=== PATIENT | male | born 1985 | race Asian ===

== ENCOUNTER → 2021-02-19 12:33 | Outpatient (CLI) | payer OTHER, SELFPAY ==
[2021-02-19 13:41] LABS: Hemoglobin A1C% w Est Avg Glu 8.4 % (4.0-6.0)
[2021-02-19 13:42] LABS: Add Manual Diff / Slide Review NO; Basophils Absolute Auto 100 /uL (0-100); Basophils Percent Auto 0.9 % (0-2); Eosinophils Absolute Auto 600 /uL (0-450); Hematocrit 51.1 % (41-53); Hemoglobin 16.9 g/dL (13.5-17.5); Lymphocytes Absolute Auto 2700 /uL (1100-4500); Mean Corpuscular HGB Conc 33.1 % (30-36); Mean Corpuscular Hemoglobin 28.4 PG (26-34); Mean Corpuscular Volume 85.8 fL (80-100); Monocytes Absolute Auto 900 /uL (0-900); Monocytes Percent Auto 8.4 % (3-14); Neutrophils Absolute Auto 6800 /uL (1500-7000); Neutrophils Percent Auto 61.7 % (50-75); Platelet Count 307 X10^3/uL (150-400); Red Blood Cell Count 5.95 X10^6/uL (4.5-5.9)
[2021-02-19 14:06] LABS: Alanine Aminotransferase 41 IU/L (<50); Albumin 4.4 g/dL (3.5-5.0); Albumin Globulin Ratio 1.4 (1.0-2.8); Alkaline Phosphatase 91 U/L (38-126); Aspartate Aminotransferase 28 IU/L (17-59); BUN Creatinine Ratio 19.6 (6-22); Bilirubin Total 0.4 mg/dL (0.2-1.3); Blood Urea Nitrogen 18 mg/dL (9-20); Calcium 9.3 mg/dL (8.4-10.2); Carbon Dioxide 26 mmol/L (22-32); Chloride 104 mmol/L (98-107); Cholesterol 240 mg/dL (140-199); Estimated Glomerular Filt Rate > 60.0 mL/min (>60); Globulin 3.1 g/dL (1.7-4.1); Glucose 165 mg/dL (70-100); HDL Cholesterol 56 mg/dL (40-60); HEMOLYSIS < 15 (0-50); LDL Cholesterol Calculated 168 mg/dL (<100); Potassium 4.2 mmol/L (3.4-5.1); Sodium 140 mmol/L (137-145); Total Protein 7.5 g/dL (6.3-8.2); Triglycerides 78 mg/dL (35-150)
[2021-02-19 14:30] LABS: TSH w/ Reflex to FT4 1.25 uIU/mL (0.47-4.68)
== END ==
PROVIDERS: PCP Family Medicine; Referring Provider Family Medicine; Visit Provider Family Medicine
DX: I10 Essential (primary) hypertension (principal); I15.9 Secondary hypertension, unspecified; M10.9 Gout, unspecified; Z83.3 Family history of diabetes mellitus
CPT/HCPCS: 36415; 80053; 80061; 83036; 84443; 84550; 85025

== ENCOUNTER → 2021-02-25 13:35 | Outpatient (CLI) | payer OTHER, SELFPAY ==
[2021-02-25] MEDS: COVID-19 VACC #1, MRNA(MOD) 100 MCG/0.5 ML VIAL IM (13:41)
== END ==
PROVIDERS: PCP Family Medicine; Visit Provider Internal Medicine
DX: Z23 Encounter for immunization (principal)
CPT/HCPCS: 0011A; 91301

== ENCOUNTER → 2021-03-26 14:33 | Outpatient (CLI) | payer OTHER, SELFPAY ==
[2021-03-26] MEDS: COVID-19 VACC #2, MRNA(MOD) 100 MCG/0.5 ML VIAL IM (14:41)
== END ==
PROVIDERS: PCP Family Medicine; Visit Provider Internal Medicine
DX: Z23 Encounter for immunization (principal)
CPT/HCPCS: 0012A; 91301

== ENCOUNTER 2022-08-18 18:22 | Emergency (ER) | payer OTHER, SELFPAY ==
[2022-08-18] VITALS (19 sets, daily range): BP systolic 166–231; BP diastolic 89–130; PULSE 72–106; RESP 14–33; TEMP 36.7; O2SAT 93–98; BMI 39.1
--- NOTE | 2022-08-18 18:47 | DI.RAD.S_ITS ---
PROCEDURE: XR CHEST 1V INDICATIONS: chest pain TECHNIQUE: One view of the chest was acquired. COMPARISON: None. FINDINGS: Surgical changes and devices: None. Lungs and pleura: Lungs are clear. No pleural effusions or pneumothorax. Mediastinum: Mediastinal contours appear normal. Heart size is normal. Bones and chest wall: No suspicious bony lesions. Overlying soft tissues appear unremarkable. IMPRESSION: 1. No acute cardiopulmonary disease. Dictated by: Harpal Gomez M.D. on 08/18/2022 at 20:03 Approved by: Harpal Gomez M.D. on 08/18/2022 at 20:04
[2022-08-18 19:19] LABS: Add Manual Diff / Slide Review NO; Basophils Absolute Auto 100 /uL (0-100); Basophils Percent Auto 0.8 % (0-2); Eosinophils Absolute Auto 600 /uL (0-450); Eosinophils Percent Auto 4.3 % (2-4); Hematocrit 48.3 % (41-53); Hemoglobin 16.1 g/dL (13.5-17.5); Lymphocytes Absolute Auto 3000 /uL (1100-4500); Lymphocytes Percent Auto 22.1 % (25-40); Mean Corpuscular HGB Conc 33.4 % (30-36); Mean Corpuscular Hemoglobin 28.7 PG (26-34); Mean Corpuscular Volume 85.8 fL (80-100); Monocytes Absolute Auto 1100 /uL (0-900); Monocytes Percent Auto 7.8 % (3-14); Neutrophils Absolute Auto 8900 /uL (1500-7000); Platelet Count 314 X10^3/uL (150-400); Red Blood Cell Count 5.63 X10^6/uL (4.5-5.9); Red Cell Distribution Width 13.2 % (11.6-14.8); White Blood Cell Count 13.7 X10^3/uL (4.5-11.0)
[2022-08-18 19:20] LABS: Alanine Aminotransferase 32 IU/L (<50); Albumin 3.9 g/dL (3.5-5.0); Alkaline Phosphatase 83 U/L (38-126); Aspartate Aminotransferase 29 IU/L (17-59); BUN Creatinine Ratio 14.9 (6-22); Bilirubin Total 0.4 mg/dL (0.2-1.3); Blood Urea Nitrogen 18 mg/dL (9-20); Calcium 8.9 mg/dL (8.4-10.2); Carbon Dioxide 25 mmol/L (22-32); Chloride 100 mmol/L (98-107); Creatine Kinase 104 U/L (55-170); Estimated Glomerular Filt Rate > 60 mL/min (>60); Globulin 3.8 g/dL (1.7-4.1); Glucose 286 mg/dL (70-100); HEMOLYSIS 19 (0-50); Lipase 467 U/L (23-300); Magnesium 1.6 mg/dL (1.6-2.3); Potassium 3.9 mmol/L (3.4-5.1); Sodium 139 mmol/L (137-145); Total Protein 7.7 g/dL (6.3-8.2)
[2022-08-18 19:31] LABS: Troponin I 0.028 ng/mL (0.01-0.034)
[2022-08-18 19:35] LABS: CKMB % Relative Index 1.3 % (1.5-5.0)
--- NOTE | 2022-08-18 21:38 | ED_ITS ---
HPI - General Adult General Chief complaint: Hypertension Stated complaint: BP HIGH SENT BY [facility] Time Seen by Provider: 08/18/22 21:23 Source: patient Mode of arrival: Ambulatory History of Present Illness HPI narrative: The patient is a 36-year-old male history of hypertension noncompliant and gout. Presents today with a gout attack on going for the last 2 days. He says he is out of his colchicine medication he went to a walk-in clinic for colchicine however it was noted that his blood pressure was 250/150 he was sent to the ED for further evaluation. He states he denies any chest pain or shortness of breath. He is in large amount of pain now. He has no fever or chills. He has a mild headache. Blood pressure initially was also noted to be quite elevated 231/130 but has come down slow weight. He states that he is supposed to take blood pressure medication but he has not had a refill for the last 6 months. Related Data Previous Rx's Medication Instructions Recorded allopurinol 100 mg tablet 100 mg PO DAILY #90 tabs 02/19/21 amlodipine 2.5 mg tablet 2.5 mg PO BEDTIME #30 tabs 02/19/21 colchicine 0.6 mg capsule 0.6 mg PO .Q hour #30 caps 02/19/21 indomethacin 50 mg capsule 50 mg PO TID PRN Gout attack #30 02/19/21 caps lisinopril 10 mg tablet 10 mg PO DAILY #30 tabs 02/19/21 amlodipine 5 mg tablet 5 mg PO DAILY #30 tabs 08/19/22 amlodipine 5 mg tablet 5 mg PO DAILY #30 tabs 08/19/22 hydrocodone 5 mg-acetaminophen 325 1 tab PO Q6H PRN pain #10 tabs 08/19/22 mg tablet hydrocodone 5 mg-acetaminophen 325 1 tab PO Q6H PRN pain #10 tabs 08/19/22 mg tablet lisinopril 10 mg tablet 10 mg PO DAILY #30 tabs 08/19/22 lisinopril 10 mg tablet 10 mg PO DAILY #30 tabs 08/19/22 Allergies Allergy/AdvReac Type Severity Reaction Status Date / Time No Known Drug Allergies Allergy Verified 08/18/22 18:45 Review of Systems Review of Systems Narrative: GENERAL: Denies chills, fatigue, malaise, fever, sweats, travel HEENT: Denies sinus pain, ear pain, sore throat, difficulty swallowing, neck pain RESPIRATORY: Denies dyspnea, cough, wheezing, hemoptysis, sputum. CARDIOVASCULAR: Denies chest pain, palpitations, orthopnea, edema GASTROINTESTINAL: Denies nausea, vomiting, abdominal pain, diarrhea, constipation, melena. : Denies dysuria, frequency, incontinence, hematuria, urinary retention, flank pain. MUSCULOSKELETAL: See HPI SKIN: No rash, no erythema, no pruritus NEUROLOGIC: Denies weakness, dizziness, headache, numbness, change in speech, confusion PSYCHIATRIC: No concerning psychosocial issues. 12 point review of systems is negative except for those stated above and HPI Patient History Medical History Family history of diabetes mellitus Gout High blood pressure Secondary hypertension Social History Smoking Status: Current every day smoker Smoking Status: Current every day smoker alcohol intake frequency: 0-2 drinks per day Substance Use Type: does not use Exam Initial Vital Signs Initial Vital Signs: Vital Signs Temperature 98.0 F 08/18/22 18:40 Pulse Rate 106 H 08/18/22 18:40 Respiratory Rate 18 08/18/22 18:40 Blood Pressure 231/130 H 08/18/22 18:40 Pulse Oximetry 96 08/18/22 18:40 Oxygen Delivery Method 08/18/22 18:40 GENERAL: Alert 36-year-old no acute distress HEENT: Head atraumatic,EOMI, pupils reactive, face symmetric, [moist] mucous membranes CARDIOVASCULAR: Regular rate and rhythm without murmurs, rubs or gallops. RESPIRATORY: Breath sounds equal bilaterally, no wheezes rales or rhonchi. ABDOMEN: Soft, nontender. Normoactive bowel sounds all 4 quadrants. No guarding or rebound. EXTREMITIES: Normal range of motion, no clubbing or edema. Neurovascularly intact Tender left great metatarsal joint no significant erythema or swelling distal pedal pulse intact NEUROLOGICAL: Alert and oriented x4.Normal gait and speech SKIN: Warm, dry, no laceration, no petechiae, no rashes or lesions. Course Orders Ordered: ED Orders 08/18/22 18:47 XR chest 1V Stat EKG-12 Lead Stat 08/18/22 18:49 Complete Blood Count AUTO DIFF Stat Comprehensive Metabolic Panel Stat Lipase Stat Magnesium Stat Troponin & CK Cardiac Panel Stat 08/18/22 22:04 Trop I [Troponin I] Stat 08/19/22 00:00 Trop I [Troponin I] Stat Discontinued Medications Hydrocodone Bitart/Acetaminophen (Hydrocodone/Acet 5/325 Prepack) 1 bottle MISC SEEINSTR ONE Stop: 08/18/22 21:44 Last Admin: 08/18/22 21:49 Dose: 1 bottle Documented By: MEREDITH Hydrocodone Bitart/Acetaminophen (Hydrocodone/Acet 5/325 Tablet) 2 tab PO NOW ONE Stop: 08/18/22 21:55 Last Admin: 08/18/22 21:59 Dose: 2 tab Documented By: MEREDITH Colchicine (Colchicine 0.6 Mg Tablet) 0.6 mg PO NOW ONE Stop: 08/18/22 21:44 Last Admin: 08/18/22 22:00 Dose: 0.6 mg Documented By: MEREDITH Lisinopril (Lisinopril 10 Mg Tablet) 10 mg PO NOW ONE Stop: 08/18/22 21:45 Last Admin: 08/18/22 22:00 Dose: 10 mg Documented By: MEREDITH Vital Signs Vital signs: Vital Signs - 8 hr 08/18/22 18:40 08/18/22 19:56 08/18/22 19:51 Temperature 98.0 F Pulse Rate 106 H 95 H Respiratory Rate 18 18 Blood Pressure 231/130 H Pulse Oximetry 96 98 Oxygen Delivery Method Room Air Room Air 08/18/22 19:53 08/18/22 19:53 08/18/22 20:00 Temperature Pulse Rate 93 H 92 H Respiratory Rate 27 H 30 H Blood Pressure 166/92 H Pulse Oximetry 97 97 Oxygen Delivery Method 08/18/22 20:30 08/18/22 20:42 08/18/22 20:42 Temperature Pulse Rate 95 H 90 Respiratory Rate 26 H 22 Blood Pressure 204/100 H Pulse Oximetry 97 98 Oxygen Delivery Method 08/18/22 21:00 08/18/22 21:02 08/18/22 21:02 Temperature Pulse Rate 90 85 Respiratory Rate 21 24 Blood Pressure 185/93 H Pulse Oximetry 95 97 Oxygen Delivery Method 08/18/22 21:30 08/18/22 21:31 08/18/22 21:31 Temperature Pulse Rate 89 84 Respiratory Rate 20 21 Blood Pressure 187/93 H Pulse Oximetry 96 96 Oxygen Delivery Method 08/18/22 22:00 08/18/22 22:01 08/18/22 22:01 Temperature Pulse Rate 87 87 Respiratory Rate 22 33 H Blood Pressure 192/89 H Pulse Oximetry 97 96 Oxygen Delivery Method 08/18/22 22:30 08/18/22 22:36 08/18/22 22:36 Temperature Pulse Rate 90 82 Respiratory Rate 22 17 Blood Pressure 182/115 H Pulse Oximetry 96 94 Oxygen Delivery Method 08/18/22 23:26 08/18/22 23:00 08/18/22 23:01 Temperature Pulse Rate 72 83 Respiratory Rate 14 21 Blood Pressure 180/92 H 202/103 H Pulse Oximetry 93 94 Oxygen Delivery Method Room Air 08/18/22 23:01 08/18/22 23:25 08/18/22 23:25 Temperature Pulse Rate 89 82 Respiratory Rate 22 20 Blood Pressure 180/92 H Pulse Oximetry 94 94 Oxygen Delivery Method 08/18/22 23:30 08/18/22 23:30 08/19/22 00:00 Temperature Pulse Rate 78 80 Respiratory Rate 22 23 Blood Pressure 171/99 H Pulse Oximetry 95 97 Oxygen Delivery Method 08/19/22 00:01 08/19/22 00:01 08/19/22 00:30 Temperature Pulse Rate 79 82 Respiratory Rate 14 21 Blood Pressure 174/95 H Pulse Oximetry 97 97 Oxygen Delivery Method 08/19/22 00:31 08/19/22 00:31 08/19/22 01:00 Temperature Pulse Rate 84 78 Respiratory Rate 17 16 Blood Pressure 173/102 H 174/98 H Pulse Oximetry 97 95 Oxygen Delivery Method Medical Decision Making Lab Data Result diagrams: 08/18/22 18:49 08/18/22 18:49 Labs: Lab Results 08/18/22 08/18/22 08/18/22 Range/Units 18:49 18:49 22:04 WBC 13.7 H (4.5-11.0) X10^3/uL RBC 5.63 (4.5-5.9) X10^6/uL Hgb 16.1 (13.5-17.5) g/dL Hct 48.3 (41-53) % MCV 85.8 (80-100) fL MCH 28.7 (26-34) PG MCHC 33.4 (30-36) % RDW 13.2 (11.6-14.8) % Plt Count 314 (150-400) X10^3/uL Neut % (Auto) 65.0 (50-75) % Lymph % (Auto) 22.1 L (25-40) % Tucker % (Auto) 7.8 (3-14) % Eos % (Auto) 4.3 H (2-4) % Baso % (Auto) 0.8 (0-2) % Neut # (Auto) 8900 H (5102-3620) /uL Lymph # (Auto) 3000 (5298-6727) /uL Tucker # (Auto) 1100 H (0-900) /uL Eos # (Auto) 600 H (0-450) /uL Baso # (Auto) 100 (0-100) /uL Sodium 139 (137-145) mmol/L Potassium 3.9 (3.4-5.1) mmol/L Chloride 100 (98-107) mmol/L Carbon Dioxide 25 (22-32) mmol/L BUN 18 (9-20) mg/dL Creatinine 1.21 (0.66-1.25) mg/dL Estimated GFR > 60 (>60) mL/min BUN/Creatinine Ratio 14.9 (6-22) Glucose 286 H (70-100) mg/dL Calcium 8.9 (8.4-10.2) mg/dL Magnesium 1.6 (1.6-2.3) mg/dL Total Bilirubin 0.4 (0.2-1.3) mg/dL AST 29 (17-59) IU/L ALT 32 (<50) IU/L Alkaline Phosphatase 83 (38-126) U/L Total Creatine Kinase 104 (55-170) U/L CK-MB (CK-2) 1.30 (<2.37) ng/mL CK-MB (CK-2) Rel Index 1.3 L (1.5-5.0) % Troponin I 0.028 0.043 H (0.01-0.034) ng/mL Total Protein 7.7 (6.3-8.2) g/dL Albumin 3.9 (3.5-5.0) g/dL Globulin 3.8 (1.7-4.1) g/dL Albumin/Globulin Ratio 1.0 (1.0-2.8) Lipase 467 H (23-300) U/L 08/18/22 Range/Units 23:56 WBC (4.5-11.0) X10^3/uL RBC (4.5-5.9) X10^6/uL Hgb (13.5-17.5) g/dL Hct (41-53) % MCV (80-100) fL MCH (26-34) PG MCHC (30-36) % RDW (11.6-14.8) % Plt Count (150-400) X10^3/uL Neut % (Auto) (50-75) % Lymph % (Auto) (25-40) % Tucker % (Auto) (3-14) % Eos % (Auto) (2-4) % Baso % (Auto) (0-2) % Neut # (Auto) (4480-1905) /uL Lymph # (Auto) (8789-3837) /uL Tucker # (Auto) (0-900) /uL Eos # (Auto) (0-450) /uL Baso # (Auto) (0-100) /uL Sodium (137-145) mmol/L Potassium (3.4-5.1) mmol/L Chloride (98-107) mmol/L Carbon Dioxide (22-32) mmol/L BUN (9-20) mg/dL Creatinine (0.66-1.25) mg/dL Estimated GFR (>60) mL/min BUN/Creatinine Ratio (6-22) Glucose (70-100) mg/dL Calcium (8.4-10.2) mg/dL Magnesium (1.6-2.3) mg/dL Total Bilirubin (0.2-1.3) mg/dL AST (17-59) IU/L ALT (<50) IU/L Alkaline Phosphatase (38-126) U/L Total Creatine Kinase (55-170) U/L CK-MB (CK-2) (<2.37) ng/mL CK-MB (CK-2) Rel Index (1.5-5.0) % Troponin I 0.045 H (0.01-0.034) ng/mL Total Protein (6.3-8.2) g/dL Albumin (3.5-5.0) g/dL Globulin (1.7-4.1) g/dL Albumin/Globulin Ratio (1.0-2.8) Lipase (23-300) U/L Point of Care Testing Glucose POC 289 Point of care testing: Point of Care Testing Glucose POC 289 Imaging Data Chest x-ray: Radiologist's Impression: Signed Patient: Selwyn Ochoa MR#: [id number] : 1985 Acct:[id number] Age/Sex: 36 / M Date of Service: 08/18/22 Loc: ED Accession Number: [id number] ?? Procedure: XR chest 1V Ordering Provider: Sera Cade D.O. PROCEDURE:? XR CHEST 1V ? INDICATIONS:? chest pain ? TECHNIQUE:? One view of the chest was acquired.? ? COMPARISON:? None. ? FINDINGS:? ? Surgical changes and devices:? None.? ? Lungs and pleura:? Lungs are clear.? No pleural effusions or pneumothorax.? ? Mediastinum:? Mediastinal contours appear normal.? Heart size is normal.? ? Bones and chest wall:? No suspicious bony lesions.? Overlying soft tissues appear unremarkable.? ? IMPRESSION:? ? 1.? No acute cardiopulmonary disease. ? ? ? Dictated by: Harpal Gomez M.D. on 08/18/2022 at 20:03 ? ? ECG Data Interpretation: Normal sinus rhythm rate 99 GA interval 124 QRS [address] depression and T-wave inversion noted in lead 3 onlyno priors to compare MDM Narrative Medical decision making narrative: The patient is actually found to be quite hypertensive. However he has absolutely no chest pain or shortness of breath he does have a mild headache. He has been noncompliant with his blood pressure medications for multiple months. Mostly here in pain with left great toe gout. He was seen initially in walk-in clinic who did sediment a prescription for colchicine but he has not yet taken anything for. Here in the ED he is given blood pressure medication his regular dose of lisinopril colchicine in pain medication. Blood pressure has come down remains more stable with a systolic in the 170s to 180s. Troponin is indeterminate but not positive minimal change between the 2nd and 3rd. At this time I think reasonable to be discharged home with restarting his home blood pressure medications. And gout attack Discharge Plan Departure Patient Disposition: Home Clinical Impression: Hypertension, Gout attack Instructions: DI for High Blood Pressure, DI for Gout Activity Restrictions/Additional Instructions: *You have been diagnosed with high blood pressure and gout attack *What to do: At this time you must restart taking her blood pressure medication as prescribed. Please roller picker your gout medication and take. I hope that your toe in her foot starts feeling better. *Continue to take medications as directed Lisinopril 10 mg once daily Amlodipine 5 mg at bedtime [place] 1 tablet every 6 hours if needed for severe pain *Follow up with your primary care provider in 2-3 days or call [phone] *Return to ER if you should have chest pain, shortness of breath, worsening headache, worsening toe pain or any new, worsening or concerning symptoms CONTROLLED SUBSTANCE DISCHARGE (Narcotoic/benzodiazepine/Flexeril/Phenergan) 1. You have been prescribed narcotic medications, it does have acetaminophen/Tylenol/paracetamol in it, DO NOT TAKE MORE THAN 4,00mg in 24 hours of Tylenol. TRAMADOL DOES NOT CONTAIN TYLENOL 2. Please understand that we cannot provide further refills of narcotics, benzodiazepines or controlled substances through the ED and her pain management will need to be through your provider. 3. While on these medications you cannot drive or operate heavy machinery. 4. You cannot sign legal documents or perform any duties such as this. 5. As long as you're taking opiate pain medications he should also be taking a stool softener such as Colace, Dulcolax, MiraLAX or prune juice, to help avoid constipation. Prescriptions: New lisinopril 10 mg tablet 10 mg PO DAILY Qty: 30 0RF amlodipine 5 mg tablet 5 mg PO DAILY Qty: 30 0RF hydrocodone-acetaminophen 5-325 mg tablet 1 tab PO Q6H PRN (Reason: pain) Qty: 10 0RF lisinopril 10 mg tablet 10 mg PO DAILY Qty: 30 0RF amlodipine 5 mg tablet 5 mg PO DAILY Qty: 30 0RF hydrocodone-acetaminophen 5-325 mg tablet 1 tab PO Q6H PRN (Reason: pain) Qty: 10 0RF No Action lisinopril 10 mg tablet 10 mg PO DAILY Qty: 30 2RF Rx Instructions: Start today, taken a.m. amlodipine 2.5 mg tablet 2.5 mg PO BEDTIME Qty: 30 2RF Rx Instructions: Start taking at bedtime February 24 allopurinol 100 mg tablet 100 mg PO DAILY Qty: 90 1RF indomethacin 50 mg capsule 50 mg PO TID PRN (Reason: Gout attack) Qty: 30 2RF Rx Instructions: administer with food or milk colchicine 0.6 mg capsule 0.6 mg PO .Q hour Qty: 30 2RF Rx Instructions: Take 1 tablet per hour max 6 in 1 day as needed gout attack. Stop when att ack no longer present Referrals: Henry Caballero, [Primary Care Provider] - Visit Report Forms: Patient Portal/API
[2022-08-18] MEDS: HYDROCODONE/ACET 5/325 PREPACK 1 BOTTLE MISC (21:49)
[2022-08-18] MEDS: HYDROCODONE/ACET 5/325 TABLET 2 TAB PO (21:59)
[2022-08-18] MEDS: COLCHICINE 0.6 MG TABLET PO (22:00)
[2022-08-18] MEDS: lisinopriL 10 MG TABLET PO (22:00)
[2022-08-18 22:32] LABS: Troponin I 0.043 ng/mL (0.01-0.034)
[2022-08-19] VITALS: PULSE 80; RESP 23; O2SAT 97
[2022-08-19 00:01] VITALS: BP 174/95; PULSE 79; RESP 14; O2SAT 97
[2022-08-19 00:26] LABS: Troponin I 0.045 ng/mL (0.01-0.034)
[2022-08-19 00:30] VITALS: PULSE 82; RESP 21; O2SAT 97
[2022-08-19 00:31] VITALS: BP 173/102; PULSE 84; RESP 17; O2SAT 97
[2022-08-19 01:00] VITALS: BP 174/98; PULSE 78; RESP 16; O2SAT 95
== END 2022-08-19 01:04 | disposition home or self-care (01) ==
PROVIDERS: Emergency Provider Emergency Medicine; PCP Family Medicine
DX: I10 Essential (primary) hypertension (principal); M10.9 Gout, unspecified; R51.9 Headache, unspecified; R07.9 Chest pain, unspecified
CPT/HCPCS: 36415; 71045; 80053; 82550; 82553; 82962; 83690; 83735; 84484; 85025; 93005; 93010; 99284

== ENCOUNTER → 2023-02-06 08:57 | Outpatient (CLI) | payer OTHER, SELFPAY ==
[2023-02-06 10:17] LABS: Basophils Absolute Auto 100 /uL (0-100); Basophils Percent Auto 0.9 % (0-2); Eosinophils Absolute Auto 800 /uL (0-450); Eosinophils Percent Auto 6.1 % (2-4); Hematocrit 52.7 % (41-53); Lymphocytes Absolute Auto 3500 /uL (1100-4500); Lymphocytes Percent Auto 25.2 % (25-40); Mean Corpuscular HGB Conc 32.2 % (30-36); Mean Corpuscular Hemoglobin 27.9 PG (26-34); Mean Corpuscular Volume 86.7 fL (80-100); Monocytes Absolute Auto 1100 /uL (0-900); Monocytes Percent Auto 8.4 % (3-14); Neutrophils Absolute Auto 8200 /uL (1500-7000); Neutrophils Percent Auto 59.4 % (50-75); Platelet Count 306 X10^3/uL (150-400); Red Blood Cell Count 6.08 X10^6/uL (4.5-5.9); White Blood Cell Count 13.7 X10^3/uL (4.5-11.0)
[2023-02-06 10:24] LABS: Add Manual Diff / Slide Review SLIDE REVIEW; Hemoglobin A1C% w Est Avg Glu 9.8 % (4.0-6.0)
[2023-02-06 10:38] LABS: Alanine Aminotransferase 40 IU/L (<50); Albumin 4.1 g/dL (3.5-5.0); Albumin Globulin Ratio 1.1 (1.0-2.8); Alkaline Phosphatase 124 U/L (38-126); Aspartate Aminotransferase 26 IU/L (17-59); BUN Creatinine Ratio 17.5 (6-22); Bilirubin Total 0.3 mg/dL (0.2-1.3); Blood Urea Nitrogen 21 mg/dL (9-20); Calcium 9.1 mg/dL (8.4-10.2); Carbon Dioxide 27 mmol/L (22-32); Chloride 99 mmol/L (98-107); Estimated Glomerular Filt Rate > 60 mL/min (>60); Globulin 3.9 g/dL (1.7-4.1); Glucose 322 mg/dL (70-100); HEMOLYSIS < 15 (0-50); Sodium 135 mmol/L (137-145); Uric Acid 9.2 mg/dL (3.5-8.5)
[2023-02-06 10:59] LABS: Erythrocyte Sedimentation Rate 1 MM/HR (0-15)
[2023-02-06 11:00] LABS: RBC Morphology Normal Morphology
== END ==
PROVIDERS: PCP Family Medicine; Referring Provider Family Medicine; Visit Provider Family Medicine
DX: I15.9 Secondary hypertension, unspecified (principal); E11.9 Type 2 diabetes mellitus without complications; M10.9 Gout, unspecified; I10 Essential (primary) hypertension
CPT/HCPCS: 36415; 80053; 83036; 84550; 85025; 85651

== ENCOUNTER → 2023-02-23 14:44 | Outpatient (CLI) | payer OTHER, SELFPAY ==
[2023-02-23 15:22] LABS: Alanine Aminotransferase 42 IU/L (<50); Albumin 4.1 g/dL (3.5-5.0); Alkaline Phosphatase 82 U/L (38-126); Aspartate Aminotransferase 32 IU/L (17-59); BUN Creatinine Ratio 16.1 (6-22); Bilirubin Total 0.4 mg/dL (0.2-1.3); Blood Urea Nitrogen 20 mg/dL (9-20); Calcium 9.6 mg/dL (8.4-10.2); Carbon Dioxide 28 mmol/L (22-32); Chloride 105 mmol/L (98-107); Cholesterol 236 mg/dL (140-199); Estimated Glomerular Filt Rate > 60 mL/min (>60); Globulin 4.1 g/dL (1.7-4.1); Glucose 168 mg/dL (70-100); HDL Cholesterol 45 mg/dL (40-60); HEMOLYSIS < 15 (0-50); LDL Cholesterol Calculated 155 mg/dL (<100); Potassium 4.1 mmol/L (3.4-5.1); Sodium 140 mmol/L (137-145); Total Protein 8.2 g/dL (6.3-8.2); Triglycerides 179 mg/dL (35-150); Uric Acid 6.5 mg/dL (3.5-8.5)
[2023-02-25 05:45] LABS: x Labcorp Estim. Avg Glu (eAG) 235 mg/dL (.); x Labcorp Hemoglobin A1c 9.8 % (4.8-5.6)
== END ==
PROVIDERS: PCP Family Medicine; Referring Provider Family Medicine; Visit Provider Family Medicine
DX: E11.9 Type 2 diabetes mellitus without complications (principal); M10.9 Gout, unspecified; I10 Essential (primary) hypertension
CPT/HCPCS: 36415; 80053; 80061; 83036; 84550

== ENCOUNTER 2023-02-23 15:17 | Emergency (ER) | payer OTHER, SELFPAY ==
[2023-02-23] VITALS (21 sets, daily range): BP systolic 174–221; BP diastolic 97–125; PULSE 66–87; RESP 16–30; TEMP 36.7; O2SAT 96–98; BMI 37.5
--- NOTE | 2023-02-23 15:36 | DI.RAD.S_ITS ---
PROCEDURE: XR CHEST 1V INDICATIONS: chest pain TECHNIQUE: One view of the chest was acquired. COMPARISON: [facility], CR, XR CHEST 1V, 08/18/2022, 18:54. FINDINGS: Surgical changes and devices: None. Lungs and pleura: Lungs are clear. No pleural effusions or pneumothorax. Mediastinum: Mediastinal contours appear normal. Heart size is enlarged. Bones and chest wall: No suspicious bony lesions. Overlying soft tissues appear unremarkable. IMPRESSION: No acute pulmonary process. Dictated by: Elizabeth Siddiqi M.D. on 02/23/2023 at 16:20 Approved by: Elizabeth Siddiqi M.D. on 02/23/2023 at 16:20
[2023-02-23] MEDS: ASPIRIN 81 MG CHEW TAB 324 MG PO (15:52)
[2023-02-23 16:06] LABS: INR 0.9 (0.9-1.3); Prothrombin Time 10.6 SECONDS (10.1-12.7)
[2023-02-23 16:09] LABS: Add Manual Diff / Slide Review NO; Basophils Absolute Auto 200 /uL (0-100); Basophils Percent Auto 1.1 % (0-2); Eosinophils Absolute Auto 900 /uL (0-450); Eosinophils Percent Auto 6.1 % (2-4); Hemoglobin 17.1 g/dL (13.5-17.5); Lymphocytes Absolute Auto 3900 /uL (1100-4500); Lymphocytes Percent Auto 27.5 % (25-40); Mean Corpuscular HGB Conc 32.8 % (30-36); Mean Corpuscular Volume 85.6 fL (80-100); Monocytes Absolute Auto 900 /uL (0-900); Monocytes Percent Auto 6.1 % (3-14); Neutrophils Absolute Auto 8400 /uL (1500-7000); Neutrophils Percent Auto 59.2 % (50-75); PTT Partial Thromboplastin Tim 41 SECONDS (26-36); Platelet Count 339 X10^3/uL (150-400); Red Blood Cell Count 6.08 X10^6/uL (4.5-5.9); Red Cell Distribution Width 13.1 % (11.6-14.8); White Blood Cell Count 14.2 X10^3/uL (4.5-11.0)
[2023-02-23 16:11] LABS: Alanine Aminotransferase 42 IU/L (<50); Albumin 4.1 g/dL (3.5-5.0); Albumin Globulin Ratio 1.1 (1.0-2.8); Alkaline Phosphatase 79 U/L (38-126); Aspartate Aminotransferase 32 IU/L (17-59); BUN Creatinine Ratio 16.1 (6-22); Bilirubin Total 0.3 mg/dL (0.2-1.3); Blood Urea Nitrogen 19 mg/dL (9-20); Calcium 9.6 mg/dL (8.4-10.2); Carbon Dioxide 25 mmol/L (22-32); Chloride 103 mmol/L (98-107); Creatine Kinase 162 U/L (55-170); Estimated Glomerular Filt Rate > 60 mL/min (>60); Globulin 3.9 g/dL (1.7-4.1); Glucose 290 mg/dL (70-100); HEMOLYSIS < 15 (0-50); Lipase 386 U/L (23-300); Magnesium 1.6 mg/dL (1.6-2.3); Potassium 4.2 mmol/L (3.4-5.1); Sodium 137 mmol/L (137-145)
[2023-02-23 16:22] LABS: Troponin I < 0.012 ng/mL (0.01-0.034)
[2023-02-23 16:23] LABS: COVID19 -Nasal RAPID Negative (Negative)
[2023-02-23 16:25] LABS: CKMB % Relative Index 0.5 % (1.5-5.0); Creatine Kinase MB 0.82 ng/mL (<2.37)
[2023-02-23 18:17] LABS: Troponin I < 0.012 ng/mL (0.01-0.034)
--- NOTE | 2023-02-23 18:26 | ED_ITS ---
HPI - Chest Pain General Chief Complaint: Chest Pain Stated Complaint: Chest pain, Headache, Weakness Time Seen by Provider: 02/23/23 18:05 Source: patient Mode of arrival: Ambulatory Limitations: no limitations History of Present Illness HPI narrative: Patient is a 37-year-old male. History of hypertension and a recent diagnosis of diabetes who is here for evaluation of headache. Intermittent chest pain that started yesterday but has been consistent today for the past 6 hours or more. Also is having a headache. He has had headaches in the past. He is not taken any of his hypertension or diabetes medicines today. No lower extremity swelling. Related Data Previous Rx's Medication Instructions Recorded indomethacin 50 mg capsule 50 mg PO TID PRN Gout attack #30 09/09/22 caps allopurinol 300 mg tablet 300 mg PO DAILY #90 tabs 02/06/23 amlodipine 2.5 mg tablet 2.5 mg PO BEDTIME #90 tabs 02/06/23 colchicine 0.6 mg tablet 0.6 mg PO .Qhour PRN gout #30 tabs 02/06/23 lisinopril 10 mg tablet 10 mg PO DAILY #90 tabs 02/06/23 metformin 500 mg tablet 500 mg PO BID #90 tabs 02/09/23 blood-glucose meter #1 ea 02/16/23 lancet with blood glucose test #300 ea 02/16/23 strips and pen needles combo pack Allergies Allergy/AdvReac Type Severity Reaction Status Date / Time No Known Drug Allergies Allergy Verified 02/23/23 15:35 Review of Systems Constitutional Constitutional: Reports system reviewed and no additional complaints, except as documented ENT Ears, Nose, Mouth, and Throat: Reports system reviewed and no additional complaints, except as documented Cardiovascular Cardiovascular: Reports system reviewed and no additional complaints, except as documented Respiratory Respiratory: Reports system reviewed and no additional complaints, except as d ocumented Gastrointestinal Gastrointestinal: Reports system reviewed and no additional complaints, except as documented Integumentary/Breasts Skin/Breast: Reports system reviewed and no additional complaints, except as documented Neurologic Neurologic: Reports system reviewed and no additional complaints, except as documented Hematologic/Lymphatic On Anticoagulants: No Patient History Medical History Diabetes Family history of diabetes mellitus Gout High blood pressure Secondary hypertension Social History (Reviewed 02/24/23 @ 03:24 by MARISA Omalley Smoking Status: Current every day smoker Smoking Status: Current every day smoker alcohol intake frequency: 0-2 drinks per day Substance Use Type: does not use Exam Initial Vital Signs Initial Vital Signs: Vital Signs Temperature 98.0 F 02/23/23 15:29 Pulse Rate 83 02/23/23 15:29 Respiratory Rate 16 02/23/23 15:29 Blood Pressure 214/120 H 02/23/23 15:29 Pulse Oximetry 97 02/23/23 15:29 Oxygen Delivery Method Room Air 02/23/23 15:29 Const General: cooperative, comfortable and No ill appearing [facility] Head: normal to inspection and normocephalic Resp Effort & Inspection: normal respiratory effort Auscultation: clear to auscultation bilaterally Cardio Rate: regular rate Rhythm: regular rhythm GI Inspection: normal to inspection Skin General: no rashes or lesions noted Neuro General: patient alert, patient awake, patient oriented x3 and moves all extremities Extrem General: capillary refill normal Psych Appearance: grossly normal Course Orders Ordered: ED Orders 02/23/23 18:54 Urine Microscopic Stat Discontinued Medications Amlodipine Besylate (Amlodipine 5 Mg Tablet) 2.5 mg PO NOW ONE Stop: 02/23/23 19:19 Last Admin: 02/23/23 19:34 Dose: 2.5 mg Documented By: RAHEEL Aspirin (Aspirin 81 Mg Chew Tab) 324 mg PO NOW ONE Stop: 02/23/23 15:37 Last Admin: 02/23/23 15:52 Dose: 324 mg Documented By: RAHEEL Sodium Chloride (Normal Saline 0.9%) 1,000 mls @ 1,000 mls/hr IV BOLUS ONE Stop: 02/23/23 19:25 Last Infusion: 02/23/23 19:50 Dose: 0 mls/hr Documented By: Admin: 02/23/23 18:53 Dose: 1,000 mls/hr Documented By: CHRISTIANO Ketorolac Tromethamine (Ketorolac 30 Mg/Ml Vial) 30 mg IV NOW ONE Stop: 02/23/23 18:27 Last Admin: 02/23/23 18:53 Dose: 30 mg Documented By: CHRISTIANO Lisinopril (Lisinopril 10 Mg Tablet) 10 mg PO NOW ONE Stop: 02/23/23 19:20 Last Admin: 02/23/23 19:45 Dose: 10 mg Documented By: AP Vital Signs Vital signs: Vital Signs - 8 hr 02/23/23 19:30 02/23/23 19:30 02/23/23 19:45 Pulse Rate 74 75 Respiratory Rate 26 H 28 H Blood Pressure 201/110 H Pulse Oximetry 97 97 02/23/23 19:45 02/23/23 20:00 02/23/23 20:00 Pulse Rate 73 Respiratory Rate 24 Blood Pressure 203/105 H 184/97 H Pulse Oximetry 96 02/23/23 20:11 02/23/23 20:11 Pulse Rate 87 Respiratory Rate 25 H Blood Pressure 221/125 H Pulse Oximetry 96 MDM - Chest Pain Lab Data Attestation: I reviewed the patient's lab results. 02/23/23 15:40 02/23/23 15:40 Labs: Lab Results 02/23/23 02/23/23 02/23/23 Range/Units 15:40 15:40 15:40 WBC 14.2 H (4.5-11.0) X10^3/uL RBC 6.08 H (4.5-5.9) X10^6/uL Hgb 17.1 (13.5-17.5) g/dL Hct 52.0 (41-53) % MCV 85.6 (80-100) fL MCH 28.0 (26-34) PG MCHC 32.8 (30-36) % RDW 13.1 (11.6-14.8) % Plt Count 339 (150-400) X10^3/uL Neut % (Auto) 59.2 (50-75) % Lymph % (Auto) 27.5 (25-40) % [place] % (Auto) 6.1 (3-14) % Eos % (Auto) 6.1 H (2-4) % Baso % (Auto) 1.1 (0-2) % Neut # (Auto) 8400 H (7936-8801) /uL Lymph # (Auto) 3900 (1140-2520) /uL [place] # (Auto) 900 (0-900) /uL Eos # (Auto) 900 H (0-450) /uL Baso # (Auto) 200 H (0-100) /uL PT 10.6 (10.1-12.7) SECONDS INR 0.9 (0.9-1.3) APTT 41 H (26-36) SECONDS Sodium 137 (137-145) mmol/L Potassium 4.2 (3.4-5.1) mmol/L Chloride 103 (98-107) mmol/L Carbon Dioxide 25 (22-32) mmol/L BUN 19 (9-20) mg/dL Creatinine 1.18 (0.66-1.25) mg/dL Estimated GFR > 60 (>60) mL/min BUN/Creatinine Ratio 16.1 (6-22) Glucose 290 H D (70-100) mg/dL Calcium 9.6 (8.4-10.2) mg/dL Magnesium 1.6 (1.6-2.3) mg/dL Total Bilirubin 0.3 (0.2-1.3) mg/dL AST 32 (17-59) IU/L ALT 42 (<50) IU/L Alkaline Phosphatase 79 (38-126) U/L Total Creatine Kinase 162 (55-170) U/L CK-MB (CK-2) 0.82 (<2.37) ng/mL CK-MB (CK-2) Rel Index 0.5 L (1.5-5.0) % Troponin I < 0.012 (0.01-0.034) ng/mL Total Protein 8.0 (6.3-8.2) g/dL Albumin 4.1 (3.5-5.0) g/dL Globulin 3.9 (1.7-4.1) g/dL Albumin/Globulin Ratio 1.1 (1.0-2.8) Lipase 386 H (23-300) U/L Urine RBC (0-5/HPF) Urine WBC (0-5/HPF) Amorphous Sediment Urine Bacteria (None) Ur Culture Indicated? SARS-CoV-2 (PCR) (Negative) 02/23/23 02/23/23 02/23/23 Range/Units 16:01 17:40 18:54 WBC (4.5-11.0) X10^3/uL RBC (4.5-5.9) X10^6/uL Hgb (13.5-17.5) g/dL Hct (41-53) % MCV (80-100) fL MCH (26-34) PG MCHC (30-36) % RDW (11.6-14.8) % Plt Count (150-400) X10^3/uL Neut % (Auto) (50-75) % Lymph % (Auto) (25-40) % [place] % (Auto) (3-14) % Eos % (Auto) (2-4) % Baso % (Auto) (0-2) % Neut # (Auto) (2683-4548) /uL Lymph # (Auto) (6003-7387) /uL [place] # (Auto) (0-900) /uL Eos # (Auto) (0-450) /uL Baso # (Auto) (0-100) /uL PT (10.1-12.7) SECONDS INR (0.9-1.3) APTT (26-36) SECONDS Sodium (137-145) mmol/L Potassium (3.4-5.1) mmol/L Chloride (98-107) mmol/L Carbon Dioxide (22-32) mmol/L BUN (9-20) mg/dL Creatinine (0.66-1.25) mg/dL Estimated GFR (>60) mL/min BUN/Creatinine Ratio (6-22) Glucose (70-100) mg/dL Calcium (8.4-10.2) mg/dL Magnesium (1.6-2.3) mg/dL Total Bilirubin (0.2-1.3) mg/dL AST (17-59) IU/L ALT (<50) IU/L Alkaline Phosphatase (38-126) U/L Total Creatine Kinase (55-170) U/L CK-MB (CK-2) (<2.37) ng/mL CK-MB (CK-2) Rel Index (1.5-5.0) % Troponin I < 0.012 (0.01-0.034) ng/mL Total Protein (6.3-8.2) g/dL Albumin (3.5-5.0) g/dL Globulin (1.7-4.1) g/dL Albumin/Globulin Ratio (1.0-2.8) Lipase (23-300) U/L Urine RBC None seen (0-5/HPF) Urine WBC None seen (0-5/HPF) Amorphous Sediment 1+ Urine Bacteria None seen (None) Ur Culture Indicated? Cult not indicated SARS-CoV-2 (PCR) Negative (Negative) Urine Dip Bedside Urine Glucose 250 mg/dl Bedside Urine Bilirubin - Negative Bedside Urine Ketone - Negative Urine Specific [place] 1.025 Bedside Urine Occult Blood - Negative Bedside Urine pH 5.5 Bedside Urine Protein ++ 100 Bedside Urine Urobilinogen - Negative Bedside Urine Nitrite - Negative Bedside Urine Leukocytes - Negative Esterase Imaging Data Chest x-ray: Radiologist's Impression: PROCEDURE:? XR CHEST 1V ? INDICATIONS:? chest pain ? TECHNIQUE:? One view of the chest was acquired.? ? COMPARISON:? [facility], , XR CHEST 1V, 08/18/2022, 18:54. ? FINDINGS:? ? Surgical changes and devices:? None.? ? Lungs and pleura:? Lungs are clear.? No pleural effusions or pneumothorax.? ? Mediastinum:? Mediastinal contours appear normal.? Heart size is enlarged. ? Bones and chest wall:? No suspicious bony lesions.? Overlying soft tissues appear unremarkable.? ? IMPRESSION:? No acute pulmonary process. ECG Data Attestation: I personally reviewed and interpreted this ECG as follows: Interpretation: Sinus rhythm Ventricular rate is 75 Normal axis Normal QRS Normal QTC No ST T wave changes MDM Narrative Medical decision making narrative: Troponins are negative. Chest x-ray is unremarkable. EKG is unremarkable. Is hypertensive but has not taken his medications today. Also has hyperglycemia but has not taken his blood sugar medicines today as well patient is not in DKA. Low suspicion for ACS. Low suspicion for intracranial hemorrhage. Patient not in heart failure. He is instructed that they needed to take his daily prescribed medications in order to maintain his blood pressure and also his blood sugar. No indication for admission to the hospital. He was given return precautions. He expressed understanding and agreement. Discharge Plan Departure Patient Disposition: Home Clinical Impression: High blood pressure, Atypical chest pain, Headache Instructions: High Blood Pressure Activity Restrictions/Additional Instructions: I recommend that you take all of your medications as directed. You were given your night dose of your blood pressure medicine. Recommend that you continue to take this as directed and continue to take your blood pressure on a daily basis at home and record the results so that you can discuss this with your primary doctor as you may need adjustments in medications. Return to the emergency department for new symptoms. Prescriptions: No Action indomethacin 50 mg capsule 50 mg PO TID PRN (Reason: Gout attack) Qty: 30 2RF Rx Instructions: administer with food or milk (DME) blood-glucose meter Kit See Rx Instructions .Route Qty: 1 0RF Rx Instructions: As directed (DME) lancet-gluc test strip-needles Combo Pack See Rx Instructions .Route Qty: 300 0RF Rx Instructions: As directed amlodipine 2.5 mg tablet 2.5 mg PO BEDTIME Qty: 90 1RF Rx Instructions: Start taking at bedtime February 24 lisinopril 10 mg tablet 10 mg PO DAILY Qty: 90 1RF allopurinol 300 mg tablet 300 mg PO DAILY Qty: 90 3RF colchicine 0.6 mg tablet 0.6 mg PO .Qhour PRN (Reason: gout) Qty: 30 1RF Rx Instructions: Take 1 tablet per hour max 6 in 1 day as needed gout attack. Stop when attack no longer present metformin 500 mg tablet 500 mg PO BID Qty: 90 0RF Referrals: Henry Caballero, [Primary Care Provider] - Stand Alone Forms: Patient Portal/API
[2023-02-23] MEDS: KETOROLAC 30 MG/ML VIAL IV (18:53)
[2023-02-23] MEDS: SODIUM CHLORIDE 0.9% 1,000 ML 1000 ML IV (18:53)
[2023-02-23 19:29] LABS: Amorphous Sediment Urine 1+; Bacteria Urine None Seen; Culture Indicated Urine Cult Not Indicated; RBC Urine None Seen (0-5/HPF); WBC Urine None Seen (0-5/HPF)
[2023-02-23] MEDS: AMLODIPINE 5 MG TABLET 2.5 MG PO (19:34)
[2023-02-23] MEDS: lisinopriL 10 MG TABLET PO (19:45)
== END 2023-02-23 20:22 | disposition home or self-care (01) ==
PROVIDERS: Emergency Medicine; Emergency Provider Emergency Medicine; PCP Family Medicine
DX: I10 Essential (primary) hypertension (principal); R07.89 Other chest pain; R51.9 Headache, unspecified; Z20.822 Contact with and (suspected) exposure to COVID-19; E11.9 Type 2 diabetes mellitus without complications; M10.9 Gout, unspecified
CPT/HCPCS: 36415; 71045; 80053; 80061; 81003; 81015; 82550; 82553; 83036; 83690; 83735; 84484; 84550; 85025; 85610; 85730; 87635; 93005; 96361; 96374; 99284; C9803; J1885

== ENCOUNTER → 2023-03-10 14:53 | Outpatient (CLI) | payer OTHER, SELFPAY ==
[2023-03-10 15:35] LABS: Alanine Aminotransferase 47 IU/L (<50); Albumin 4.3 g/dL (3.5-5.0); Alkaline Phosphatase 95 U/L (38-126); Aspartate Aminotransferase 33 IU/L (17-59); BUN Creatinine Ratio 21.8 (6-22); Bilirubin Total 0.4 mg/dL (0.2-1.3); Blood Urea Nitrogen 26 mg/dL (9-20); Calcium 9.5 mg/dL (8.4-10.2); Carbon Dioxide 26 mmol/L (22-32); Chloride 100 mmol/L (98-107); Estimated Glomerular Filt Rate > 60 mL/min (>60); Globulin 4.1 g/dL (1.7-4.1); Glucose 185 mg/dL (70-100); HEMOLYSIS < 15 (0-50); Potassium 4.6 mmol/L (3.4-5.1); Sodium 138 mmol/L (137-145); Total Protein 8.4 g/dL (6.3-8.2); Uric Acid 6.9 mg/dL (3.5-8.5)
[2023-03-11 06:08] LABS: Labcorp Hemoglobin (Hb) A1c 9.9 % (4.8-5.6)
== END ==
PROVIDERS: PCP Family Medicine; Referring Provider Family Medicine; Visit Provider Family Medicine
DX: I15.9 Secondary hypertension, unspecified (principal); Z83.3 Family history of diabetes mellitus; I10 Essential (primary) hypertension; M10.9 Gout, unspecified
CPT/HCPCS: 36415; 80053; 83036; 84550

== ENCOUNTER 2023-06-24 23:57 | Emergency (ER) | payer OTHER, SELFPAY ==
[2023-06-25 00:04] VITALS: BP 197/108; PULSE 110; RESP 20; TEMP 36.6; O2SAT 99; BMI 35.2
--- NOTE | 2023-06-25 00:11 | DI.RAD.S_ITS ---
PROCEDURE: XR FOOT RT MIN 3V INDICATIONS: Injury TECHNIQUE: 3 views of the foot were acquired. COMPARISON: None. FINDINGS: Bones: No fractures or dislocations. No suspicious bony lesions. Calcaneal spur. Soft tissues: No tibiotalar joint effusion. Achilles tendon appears normal. IMPRESSION: No visualized acute fracture or dislocation. However, if clinical concern and/or pain persist, short interval imaging followup in 7-10 days is recommended, as occult injury cannot be definitively excluded. Dictated by: Elizabeth Siddiqi M.D. on 06/25/2023 at 1:05 Approved by: Elizabeth Siddiqi M.D. on 06/25/2023 at 1:05
--- NOTE | 2023-06-25 00:54 | ED.LOWEXIN ---
HPI - Extremity Injury (Lower) General Chief Complaint: Extremity Injury, Lower Stated Complaint: Rt ankle injury Time Seen by Provider: 06/25/23 00:43 Source: patient Mode of arrival: Wheelchair Limitations: no limitations History of Present Illness HPI Narrative: This is a 37-year-old male with history of hypertension, diabetes and gout who presents with complaint to the right foot. Patient states yesterday he was at work he was climbing down off a ladder when he accidentally caught his toes on the ladder and hyperextended his foot. He describes pain over the midfoot region. He states it was mildly uncomfortable initially he was able to ambulate but limps slightly. He went to sleep that evening and woke up at about 11:00 a.m. in the morning with increasing pain. States pain has been keeping awake this evening. He denies any numbness or tingling. He does appreciate some generalized swelling. He denies any bruising or skin color changes. Patient denies any warmth or erythema. Patient states he tried some ibuprofen around 7:00 a.m. in the evening with minimal improvement. Denies any major surgeries. Does use tobacco, occasional alcohol, no illicit. Related Data Previous Rx's Medication Instructions Recorded indomethacin 50 mg capsule 50 mg PO TID PRN Gout attack #30 09/09/22 caps allopurinol 300 mg tablet 300 mg PO DAILY #90 tabs 02/06/23 colchicine 0.6 mg tablet 0.6 mg PO .Qhour PRN gout #30 tabs 02/06/23 blood-glucose meter #1 ea 02/16/23 lancet with blood glucose test #300 ea 02/24/23 strips and pen needles combo pack blood sugar diagnostic (Blood #50 ea 02/27/23 Glucose Test strips) lisinopril 20 mg tablet 20 mg PO DAILY #90 tabs 03/02/23 amlodipine 5 mg tablet 5 mg PO BEDTIME #90 tabs 03/10/23 empagliflozin 25 mg tablet 25 mg PO DAILY #90 tabs 03/10/23 (Jardiance) metformin 1,000 mg tablet 1,000 mg PO BID #180 tabs 03/10/23 atorvastatin 10 mg tablet 10 mg PO BEDTIME #90 tabs 03/15/23 lancets #1 ea 04/28/23 Allergies Allergy/AdvReac Type Severity Reaction Status Date / Time No Known Drug Allergies Allergy Verified 04/28/23 16:30 Review of Systems Review of Systems ROS Unobtainable: All systems reviewed & are unremarkable except as noted in HPI and below Patient History Medical History Diabetes Family history of diabetes mellitus Gout High blood pressure Secondary hypertension Social History Smoking Status: Current every day smoker Smoking Status: Current every day smoker alcohol intake frequency: 0-2 drinks per day Substance Use Type: does not use Exam Narrative Exam Narrative: GENERAL: Alert and oriented x three, male in mild distress. HEENT: Head normocephalic, atraumatic, EOMI, pupils reactive, face symmetric, moist mucous membranes NECK: Supple, full range of motion EXTREMITIES: Normal range of motion, no clubbing. Neurovascularly intact. 2+ dorsalis pedis. Patient has some mild swelling right in comparison to left. He has some mild tenderness over the midfoot. No bony tenderness of the toes he does have some discomfort over the metatarsals but generalized. No discrete bony tenderness on examination no other bony tenderness of the ankle or lower extremity. Patient is able to plantar flex and dorsiflex but appears uncomfortable. Cap refills less than 2 seconds in all 5 toes. Normal sensation throughout. No warmth, erythema or ecchymosis appreciated. No other lacerations or contusion noted. NEUROLOGICAL: Cranial nerves II through XII grossly intact. Moving all extremities SKIN: Warm, dry, no petechiae, no rashes or lesions. Initial Vital Signs Initial Vital Signs: Vital Signs Temperature 98 F 06/25/23 00:04 Pulse Rate 110 H 06/25/23 00:04 Respiratory Rate 20 06/25/23 00:04 Blood Pressure 197/108 H 06/25/23 00:04 Pulse Oximetry 99 06/25/23 00:04 Oxygen Delivery Method Room Air 06/25/23 00:04 Course Orders Ordered: ED Orders 06/25/23 00:11 XR foot RT min 3V Stat Discontinued Medications Tramadol HCl (Tramadol 50 Mg Prepack) 1 bottle MISC SEEINSTR ONE Stop: 06/25/23 01:12 Last Admin: 06/25/23 01:16 Dose: 1 bottle Documented By: RL Vital Signs Vital signs: Vital Signs - 8 hr 06/25/23 00:04 Temperature 98 F Pulse Rate 110 H Respiratory Rate 20 Blood Pressure 197/108 H Pulse Oximetry 99 Oxygen Delivery Method Room Air MDM - Extremity Injury (Lower) Imaging Data Extremity x-ray #1: Radiologist's Impression: [address] [address] XRay Report Signed Patient: Selwyn Ochoa MR#: [id number] : 1985 Acct:[id number] Age/Sex: 37 / M Date of Service: 06/25/23 Loc: ED Accession Number: [id number] ?? Procedure: XR foot RT min 3V Ordering Provider: Margaux Farfan D.O. PROCEDURE:? XR FOOT RT MIN 3V ? INDICATIONS:? Injury ? TECHNIQUE:? 3 views of the foot were acquired.? ? COMPARISON:? None. ? FINDINGS:? ? Bones:? No fractures or dislocations.? No suspicious bony lesions.? Calcaneal spur. ? Soft tissues:? No tibiotalar joint effusion.? Achilles tendon appears normal.? ? ? IMPRESSION:? No visualized acute fracture or dislocation. However, if clinical concern and/or pain persist, short interval imaging followup in 7-10 days is recommended, as occult injury cannot be definitively excluded. ? ? Dictated by: Elizabeth Siddiqi M.D. on 06/25/2023 at 1:05 ? ? Approved by: Elizabeth Siddiqi M.D. on 06/25/2023 at 1:05?? [facility] Narrative Medical decision making narrative: This is a 37-year-old male who presents with complaint of right foot injury over the metatarsal midpoint region. Patient hyperextended his foot while walking down a ladder accidentally. He was able to ambulate on it throughout the rest of the day but has become increasingly more uncomfortable and he is noted some increased swelling. Patient's overall neurovascularly intact. Initial x-ray on prelim read does not show any fracture. Discussed with patient he feels comfortable return home and I will call with results of his x-ray imaging if there are any discrepancies. Plan for NSAIDs, pain management, splint and toe-touch weight-bearing as tolerated with follow-up 7-10 days if symptoms persisting. Discharge Plan Departure Patient Disposition: Home Clinical Impression: Foot pain, right Instructions: DI for Foot Pain Activity Restrictions/Additional Instructions: Please follow-up in 7-10 days for for recheck if your if your symptoms have not resolved. Toe-touch weightbear as tolerated. If your symptoms have improved you can continue to weightbear normally.. You can take ibuprofen up to 600 mg every 6 hours and/or Tylenol up to a 1000 mg every 6 hours as needed for pain. If would adequate you can take Ultram 1 tablet every 6 hours as needed. This medication can make you sleepy do not drive, perform hazardous activities or make any major decisions while taking it. This medication will make you constipated please take a stool softener once to twice daily until stools are soft and regular. Splint Care: Keep splint clean and dry. Elevated affected body part to decrease swelling. OK to use ice pack on the affected body part. Use for 15-20 minutes each time, for 5-6x per day. If you develop worsening pain, numbness, tingling, discoloration of the affected body part, loosen the splint by loosening the MEKA wrap, and either see your doctor for an urgent re-assessment, or return to the Emergency Department. Return to the Emergency Department for any new or worsening symptoms. Prescriptions: No Action indomethacin 50 mg capsule 50 mg PO TID PRN (Reason: Gout attack) Qty: 30 2RF Rx Instructions: administer with food or milk (DME) blood-glucose meter Kit See Rx Instructions .Route Qty: 1 0RF Rx Instructions: As directed (DME) lancet-gluc test strip-needles Combo Pack See Rx Instructions .Route Qty: 300 2RF Rx Instructions: Use to test blood sugars twice daily (DME) Blood Glucose Test Strip See Rx Instructions .Route Qty: 50 6RF Rx Instructions: Use to check BG 4x daily or as needed atorvastatin 10 mg tablet 10 mg PO BEDTIME Qty: 90 3RF lisinopril 20 mg tablet 20 mg PO DAILY Qty: 90 0RF Rx Instructions: BP goal 130/80 (DME) lancets See Rx Instructions .Route .MEDSUPPLY Qty: 1 6RF Rx Instructions: Use to test blood sugars twice daily allopurinol 300 mg tablet 300 mg PO DAILY Qty: 90 3RF colchicine 0.6 mg tablet 0.6 mg PO .Qhour PRN (Reason: gout) Qty: 30 1RF Rx Instructions: Take 1 tablet per hour max 6 in 1 day as needed gout attack. Stop when attack no longer present amlodipine 5 mg tablet 5 mg PO BEDTIME Qty: 90 3RF Rx Instructions: Start taking at bedtime February 24 metformin 1,000 mg tablet 1,000 mg PO BID Qty: 180 3RF Jardiance 25 mg tablet 25 mg PO DAILY Qty: 90 3RF Rx Instructions: 1/2 pill q d first 6days then 1 po bid Referrals: Henry Caballero, [Primary Care Provider] - Stand Alone Forms: Patient Portal/API, Work Release Note
[2023-06-25] MEDS: TRAMADOL 50 MG PREPACK 1 BOTTLE MISC (01:16)
== END 2023-06-25 01:18 | disposition home or self-care (01) ==
PROVIDERS: Emergency Provider Emergency Medicine; PCP Family Medicine
DX: M79.671 Pain in right foot (principal); X50.1XXA Overexertion from prolonged static or awkward postures, initial encounter
CPT/HCPCS: 73630; 99283

== ENCOUNTER → 2024-07-26 15:22 | Outpatient (CLI) | payer OTHER, SELFPAY ==
--- NOTE | 2024-09-04 10:31 | DIAB.MNT ---
Initial Diabetes Medical Nutrition Therapy Assessment Name: Selwyn Ochoa (Selwyn) Date: 07/26/24 Time: 340-440p Dx: Type II Diabetes Provider: Federico Samano presents for initial visit. Endorses Dm diagnosis for about 2 years. States he was rx'd Ozempic and Jardiance, both of which were denied by insurance. Endorses large CHO portions with rice intake, [place] culture foods at dinner usually. 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 Endorses 1/3-1/2 pack per day cigarettes. Endorses hyperglycemia symptoms of excessive thirst and urination, and slow healing of wounds. 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 Diet Recall: 130p: 3 pieces of white bread with reaves and meat or egg OR hot dog 5p: coffee with sf creamer and 2 chocolate chip cookies from vending machine 8p: 2c white rice with pork adobo OR 2c pakbit dish with veggies and rice 11p: smoke break, no snack 2-3a: same as 8p meal but usually larger portions per report water: 15 x 8oz quit soda x 1 year cut out ETOH Anthropometrics: Ht: 67 Wt: 255# 05/2024 Physical Activity: Walking on weekends for 30-45 mins. Reports activity at work. Self-Monitoring Blood Glucose: Infrequent checks per report. No BG for review today. Reports a FBG of 132 today. Diabetes Medications: 1000mg Metformin BID Pertinent Labs: HgA1c: 10.4% 02/2023 9.9% 02/2023 8.8% 05/2024 Past Medical History: (Last Reviewed 05/27/24 @ 17:19 by Henry Caballero DO) Diabetes Family history of diabetes mellitus Gout High blood pressure Hyperlipidemia Secondary hypertension Nutrition Rx: Carbohydrates: Meal:45-60g Snack:15-30g Nutrition Diagnosis: - Excessive CHO intake r/t nutrition knowledge deficit aeb diet recall and no previous MNT or DSME - Predicted inadequate fiber intake r/t limited veggies and whole grains aeb diet recall - Self monitoring deficit r/t preparation stage of change for SMBG aeb pt report Intervention: This participant was very receptive. Provided appropriate educational handouts. Discussed the following topics: Completed intake assessment. Discussed barriers to care. Pathophysiology of T2DM HgA1c, its correlation to blood glucose numbers, and rationale for goal Importance of self-monitoring, how often, and when to check. Suggested checking at different times to evaluate meals Plate Method, impact of macronutrients on blood sugar, meal timing, carbohydrate counting, pairing macronutrients and spreading out carbohydrates for better blood glucose management Recommended servings for carbohydrates at meals and snacks Heart health nutrition Brainstormed appropriate meal plan based on food preferences Role of physical activity Created SMART goals for patient self-care and success. Goals: Aim for 1/3 pack of cigarettes per day or less Check BG 1-2 x per day Try to reduce rice potions Add veggies to meals Follow-up: LINDA MARTEL follow-up in 2-3 weeks Yamile Olmstead RDN, CDCES Certified Diabetes Care and Private Duty Aide P: [phone] Thank you for this referral
== END ==
PROVIDERS: PCP Family Medicine; Referring Provider Family Medicine
DX: E11.9 Type 2 diabetes mellitus without complications (principal); Z71.3 Dietary counseling and surveillance
CPT/HCPCS: 97802

== ENCOUNTER → 2024-08-16 14:06 | Outpatient (CLI) | payer OTHER, SELFPAY ==
--- NOTE | 2024-09-04 10:50 | DIAB.MNTFU ---
Follow-up Diabetes Medical Nutrition Therapy Assessment Name: Selwyn Ochoa (Selwyn) Date: 08/16/24 Time: 210-245p Dx: Type II Diabetes Provider: Federico Selwyn presents for DM visit. Thinks he has lost wt, though declines a weigh in today. States he sometimes forgets his 11p snack, but has been trying to incorporate nuts. Checking pc readings but sometimes a bit early, 30-60 mins. Interested in trying brown rice. Has questions about cauliflower rice. Has small bowls he can use for rice portions. Does not have measuring cup. Diet Recall: 2p: 2 pieces of white bread with reaves +/- egg 5p: coffee with sf creamer and cookie and nuts (17-24g CHO) 8p: 1-2c white rice with protein and salad 11p: smoke break, no snack or peanuts 2-3a: 1-2c rice with protein and veggies Anthropometrics: Ht: 67 Wt: 255# 05/2024 Physical Activity: Walking on weekends for 30-45 mins. Reports activity at work. States he able to work freely at work. Self-Monitoring Blood Glucose: Checking FBG and 30-60 min pc. FBG often >130mg/dl but under 140mg/dl. All pc readings for dinner have been 161-172mg/dl this month, however may be premature with some at 30 min pc. Date pre post pre post pre post 08/09 136 914 126 15 132 16 136 08/13 131 08/14 127 08/15 164 Diabetes Medications: 1000mg Metformin BID Pertinent Labs: HgA1c: 10.4% 02/2023 9.9% 02/2023 8.8% 05/2024 Past Medical History: (Last Reviewed 05/27/24 @ 17:19 by Henry Caballero DO) Diabetes Family history of diabetes mellitus Gout High blood pressure Hyperlipidemia Secondary hypertension Nutrition Rx: Carbohydrates: Meal:45-60g Snack:15-30g Nutrition Diagnosis: - Excessive CHO intake r/t nutrition knowledge deficit aeb diet recall and no previous MNT or DSME- improved - Predicted inadequate fiber intake r/t limited veggies and whole grains aeb diet recall- improved - Self monitoring deficit r/t preparation stage of change for SMBG aeb pt report - improved Intervention: This participant was very receptive. Provided appropriate educational handouts. Discussed the following topics: Choosing higher fiber and more complex CHO Portion recs for CHO BG monitoring recs for pc readings of 1-2 hours Meal timing Physical activity Smoking cessation Created SMART goals for patient self-care and success. Goals: Aim for 1/3 pack of cigarettes per day or less- in progress Check BG 1-2 x per day- met Try to reduce rice potions- met Add veggies to meals - met Use small bowl for rice - new Try brown rice- new Try cauliflower rice- new Take pc reading 1-2 hr after meal- new Walk as much as possible at work- new Follow-up: LINDA MARTEL follow-up in 3-4 weeks Yamile Olmstead RDN, TAHMINA Certified Diabetes Care and Mandarin Teacher P: [phone] Thank you for this referral
== END ==
PROVIDERS: PCP Family Medicine; Referring Provider Family Medicine
DX: E11.9 Type 2 diabetes mellitus without complications (principal); Z71.3 Dietary counseling and surveillance; Z79.84 Long term (current) use of oral hypoglycemic drugs
CPT/HCPCS: 97803